=== PATIENT | female | born 1925 | race Caucasian/White ===

== ENCOUNTER 2016-04-29 19:37 | Inpatient (IN) | payer MEDICARE ==
[~2016-04-29] VITALS: Ht 175.3 cm; Wt 48.6 kg
[~2016-04-29 19:37] MED LIST: ASPIRIN325 MG PO; ATIVAN0.5 MG PO; BETAPACE 80 MG80 MG PO; HYDROCODONE-APA1 TAB PO; LUNESTA3 MG PO; MIRALAX17 GM PO; NORVASC2.5 MG PO
[2016-04-29 20:34] LABS: BASOPHILS 0 % (0.0-2.0); EOSINOPHILS 0.6 % (0-7); HEMATOCRIT 29.8 % (36.0-48.0); HEMOGLOBIN 9.4 g/dL (12-16); IMMATURE GRANULOCYTES 0.2 % (0-5); LYMPHOCYTES 5.3 % (15-50); MCH 27.5 pg (26.0-34.0); MCHC 31.5 g/dL (31.0-37.0); MCV 87.1 fL (80.0-100.0); MEAN PLATELET VOLUME 8.8 fL (7.4-10.4); MONOCYTES 5.1 % (2-11); NEUTROPHILS 88.8 % (40-80); RBC 3.42 10x6/uL (4.00-5.40); RDW 16.8 % (11.5-14.5); WBC 9.8 10x3/uL (4.8-10.8)
[2016-04-29 20:35] LABS: PLATELET COUNT 252 10x3/uL (130-400)
[2016-04-29 20:57] LABS: ALBUMIN 1.9 g/dL (3.4-5.0); ANION GAP 10.5 mmol/L (8-16); BILIRUBIN - TOTAL 1.2 mg/dL (0.2-1.3); CALCIUM 7.9 mg/dL (8.5-10.1); CARBON DIOXIDE 29.3 mmol/L (21.0-32.0); POTASSIUM - SERUM 3.8 mmol/L (3.5-5.1); PROTEIN - SERUM 5.5 g/dL (6.4-8.2)
[2016-04-29 22:06] LABS: CREATINE KINASE 35 UL (21-215); PRO BNP 4801 pg/mL (0-450); TROPONIN-I < 0.017 ng/mL (0.000-0.060)
[2016-04-29 22:35] LABS: APPEARANCE CLEAR (CLEAR); BILIRUBIN NEGATIVE (NEGATIVE); COLOR DK YELLOW (YELLOW); GLUCOSE NEGATIVE (NEGATIVE); KETONE NEGATIVE (NEGATIVE); LEUKOCYTE ESTERASE NEGATIVE (NEGATIVE); NITRITE NEGATIVE (NEGATIVE); PROTEIN TRACE mg/dL (NEGATIVE); SPECIFIC GRAVITY 1.015 (1.005-1.020)
[2016-04-29 22:42] LABS: UDS - AMPHET NEGATIVE QUAL (NEGATIVE); UDS - BARB NEGATIVE QUAL (NEGATIVE); UDS - BENZO NEGATIVE QUAL (NEGATIVE); UDS - COCAINE NEGATIVE QUAL (NEGATIVE); UDS - METH NEGATIVE QUAL (NEGATIVE); UDS - OPIATE POSITIVE QUAL (NEGATIVE); UDS - PCP NEGATIVE QUAL (NEGATIVE); UDS - THC NEGATIVE QUAL (NEGATIVE)
--- NOTE | 2016-04-29 23:14 | NUR ---
RECIEVED TO ROOM 2130 FROM ER VIA . PT ALERT AND ORIENTED TO SELF AND PLACE. UP WITH ASSIST TO BSC AND THEN TO BED. IV TO RIGHT FOREARM SL, SITE CLEAN AND DRY. 02 AT 3LITER VIA [place]. HISTORY OBTAINED FROM DAUGHTER. PT DENIES NEEDS, BED LOW, CL IN REACH, BED ALARM IN USE.
[2016-04-29] MEDS ORDERED: LISINOPRIL2.5 MG PO (23:43)
[2016-04-29] MEDS ORDERED: KLONOPIN0.5 MG PO (23:45)
[2016-04-29] MEDS ORDERED: ISOSORBIDE MONO30 M1 PO (23:46)
[2016-04-29] MEDS ORDERED: PACERONE200 MG PO (23:48)
[2016-04-29] MEDS ORDERED: VITAMIN D5000 UNIT PO (23:48)
[2016-04-29] MEDS ORDERED: ZOFRAN ODT4 MG/UDTAB PO (23:51)
[2016-04-30] VITALS (7 sets, daily range): BP systolic 133–157; BP diastolic 57–68; Ht 175.3 cm; Wt 48.6 kg
--- NOTE | 2016-04-30 01:51 | NUR ---
RESTING WITH EYES CLOSED, RESPERATIONS EVEN, NO S/S DISTRESS NOTED.
--- NOTE | 2016-04-30 04:00 | NUR ---
ELECTRONICS SUPERVISOR AT BEDSIDE FOR VS. CONT TO MONITOR.
--- NOTE | 2016-04-30 13:11 | NUR ---
Patient Name: BERTRAM LIANG Admission Status: ER Accout number: [id number] Admission Date: 04-29-2016 : 1925 Admission Diagnosis: Attending: LYNETTE Current LOS: 1 Anticipated DC Date: Planned Disposition: Home with Home Health Primary Insurance: MEDICARE A & B PLANNED EXTERNAL PROVIDER: [facility] Discharge Planning Comments: * Is the patient Alert and Oriented? Yes 0 * How many steps to enter\\exit or inside your home? NONE 0 * PCP DR. YOUNG 0 * Pharmacy [facility] 0 * Preadmission Environment Home with Family 0 * Partial ADLs (Assistance needed) Medication Management 0 * Equipment Bedside Commode Walker 0 * Other Equipment NO MEDICAL EQUIPMENT PROVIDER PREFERENCE 0 * List name and contact numbers for known caregivers / representatives who currently or will assist patient after discharge: DARIANA LIANG, DAUGHTER, 0 * Community resources currently utilized Home Health Other 0 * Please name any agencies selected above. [facility] CALL[facility] 0 * Additional services required to return to the preadmission environment? No 0 * Can the patient safely return to the preadmission environment? Yes 0 * Has this patient been hospitalized within the prior 30 days at any hospital? No 0 CM MET WITH PT AND FAMILY IN ROOM TO DISCUSS DISCHARGE PLANNING AND NEEDS. PT REPORTS LIVING AT HOME PARITALLY DEPENDENT UPON HER ADULT SON AND DAUGHTER. PT REPORTS HAVING ASSISTANCE WITH MEDICATIONS BUT HAS BEEN INDEPENDENT IN OTHER DAILY LIVING TASKS. PT HAS A BEDSIDE COMMODE AND WALKER. PT'S SON IS GOING TO [place]" TODAY TO LOOK FOR A HOSPITAL BED TO PURCHASE FOR PT AND ASKED ABOUT GETTING ONE FROM MEDICARE. CM EXPLAINED THAT A DOCTOR'S ORDER IS REQUIRED AND THAT PT WOULD HAVE TO HAVE CONDITION THAT REQUIRED HEAD OF BED TO BE ELEVATED GREATER THAN 30 DEGREES THAT COULD NOT BE ACHEIVED BY PROPPING UP THE HEADBOARD OR PROPPING PT WITH PILLOWS. PT HAS NO MEDICAL EQUIPMENT PROVIDER AND HAS NURSING, PHYSICAL THERAPY AND AIDE SERVICE WITH [facility]. CM DISCUSSED AVAILABILITY OF HOME HEALTH, REHAB SERVICES AND MEDICAL EQUIPMENT. PT WOULD LIKE A HOSPITAL BED AND RESUME HOME HEALTH WITH [facility], FAMILY REPORTS THEY WILL PICK PT UP FOR DISCHARGE HOME. CM CALLED ERNESTO AT [facility] [place] WHO ADVISED COPAY OF 20% WITH NO COINSURANCE WOULD BE APPROXIMATELY $30 MONTHLY; CM CALLED [facility] WHO ADVISED THAT 20% COPAY WITH NO COINSURANCE WOULD BE APPROXIMATELY $20-$30 MONTHLY. CM SPOKE TO BOYD HERNANDEZ WHO REPORTS WORKUP STILL IN PROGRESS, PT MAY REQUIRE REHAB SERVICES PRIOR TO GOING HOME. CM ADVISED PT AND FAMILY THAT CM WILL WAIT MEDICAL DETERMINATION AND EVALUATION FOR REHAB SERVICES MEDICAL EQUIPMENT NEEDS WOULD BE EVALUATED PRIOR TO DISCHARGE HOME. CM TO FOLLOW AND ASSIST NEEDED. Vice President Of Business Development: Sigifredo Arita
[2016-04-30 13:48] LABS: CKMB 0.9 U/L (0.0-3.6); CREATINE KINASE 20 UL (21-215); TROPONIN-I < 0.017 ng/mL (0.000-0.060)
[2016-04-30 13:53] LABS: % SATURATION 15 % (15-55); IRON 13 ug/dl (35-150); TOTAL IRON BIND CAPACITY 84 ug/dl (260-445); UNSAT IRON BIND CAPACITY 71 ug/dl (150-375)
--- NOTE | 2016-04-30 13:54 | NUR ---
ALERT AND ORIENTED X4. ASSIST TO BEDSIDE COMMODE AND BACK TO BED. URINATES 400mL. CLEAR YELLOW COLOR. DENIES SOB OR PAIN. EKG COMPLETE ON CHART. BED ALARM ON. SINUS RHYTHM 64bpM WITH PACs ON TELEMETRY. BED LOCKED AND LOW. CALL LIGHT IN REACH. TWO SIDERAILS UP. REFUSE SCDs.
[2016-04-30 19:22] LABS: CKMB 0.6 U/L (0.0-3.6); CREATINE KINASE 18 UL (21-215); TROPONIN-I 0.016 ng/mL (0.000-0.060)
--- NOTE | 2016-04-30 19:35 | NUR ---
RECEIVED REPORT, 04-11L, [id number] @50, [id number], BED IS LOW, SRX2, BED ALARM ON, DENIES ANY NEEDS, CALL LIGHT IN REACH, WILL CONTINUE TO MONITOR
[2016-05-01 01:18] LABS: CKMB 0.8 U/L (0.0-3.6); CREATINE KINASE 21 UL (21-215)
[2016-05-01 01:32] LABS: TROPONIN-I < 0.017 ng/mL (0.000-0.060)
--- NOTE | 2016-05-01 03:32 | NUR ---
ASSESSMENT COMPLETE, PT CONFUSED, ASKING WHY SHE CAN'T GO BACK TO ROOM SHE WAS IN EARLIER, BED ALARM IS ON, CALL LIGHT IN REACH, WILL CONTINUE TO MONITOR
[2016-05-01 03:36] VITALS: BP 127/61
[2016-05-01 06:22] VITALS: BP 108/62
[2016-05-01 06:55] LABS: BASOPHILS 0.1 % (0.0-2.0); EOSINOPHILS 2.2 % (0-7); HEMATOCRIT 27.4 % (36.0-48.0); HEMOGLOBIN 8.7 g/dL (12-16); IMMATURE GRANULOCYTES 0.3 % (0-5); LYMPHOCYTES 9.3 % (15-50); MCH 27.2 pg (26.0-34.0); MCHC 31.8 g/dL (31.0-37.0); MCV 85.6 fL (80.0-100.0); MEAN PLATELET VOLUME 9.1 fL (7.4-10.4); MONOCYTES 7.4 % (2-11); NEUTROPHILS 80.7 % (40-80); PLATELET COUNT 264 10x3/uL (130-400); RDW 16.6 % (11.5-14.5)
[2016-05-01 06:57] LABS: WBC 6.9 10x3/uL (4.8-10.8)
[2016-05-01 07:07] LABS: ALBUMIN 1.7 g/dL (3.4-5.0); BILIRUBIN - TOTAL 0.6 mg/dL (0.2-1.3); CALCIUM 7.6 mg/dL (8.5-10.1); CARBON DIOXIDE 31.7 mmol/L (21.0-32.0); PROTEIN - SERUM 5.5 g/dL (6.4-8.2)
[2016-05-01 07:08] LABS: ANION GAP 7.3 mmol/L (8-16); CREATININE - SERUM 1.6 mg/dL (0.6-1.3)
--- NOTE | 2016-05-01 07:31 | NUR ---
PT SITTING UP IN BED. PT DOES NOT HAVE A PIV. I TRIED TO STICK PT X2. PT VEINS ARE SO LARGE THEY BLOW SOON PIV INSERTED. WILL CALL VASCULAR NURSE WHEN SHE ARRIVES.
[2016-05-01 08:22] LABS: MAGNESIUM - SERUM 1.4 mg/dL (1.8-2.4); PHOSPHOROUS 3.4 mg/dL (2.5-4.9)
[2016-05-01 08:30] LABS: POTASSIUM - SERUM 2.9 mmol/L (3.5-5.1)
--- NOTE | 2016-05-01 08:31 | NUR ---
IV access-20 gauge inserted in right arm. Leticia Hooker RN
--- NOTE | 2016-05-01 08:56 | NUR ---
KEYLA VASCULAR NURSE WAS ABLE TO GET A 20G PIV TO R FA X1 STICK. CLINIMIX IS RUNNING NO PROBLEMS.
[2016-05-01 09:05] VITALS: BP 136/71
[2016-05-01 09:17] LABS: FOLATE (FOLIC ACID) - SERUM 9.7 ng/mL (>3.0)
[2016-05-01 12:28] VITALS: BP 133/60
--- NOTE | 2016-05-01 13:32 | NUR ---
LYING IN BED IN NO ACUTE DISTRESS. VISITING WITH FAMILY. CALL LIGHT WITHIN REACH. DENIES NEEDS
[2016-05-01 16:28] VITALS: BP 126/61
--- NOTE | 2016-05-01 19:00 | NUR ---
RECEIVED REPORT AND ASSUMED PT CARE FROM DAY SHIFT NURSE @ THIS TIME.
[2016-05-01 19:53] VITALS: BP 121/57
--- NOTE | 2016-05-01 23:32 | NUR ---
POTASSIUM RESULTS - 3.9. NO FURTHER INTERVENTION REQUIRED.
[2016-05-02 00:24] VITALS: BP 120/57
[2016-05-02 04:23] VITALS: BP 125/58
[2016-05-02 05:41] LABS: BASOPHILS 0 % (0.0-2.0); HEMATOCRIT 28.4 % (36.0-48.0); IMMATURE GRANULOCYTES 0.3 % (0-5); LYMPHOCYTES 10.8 % (15-50); MCH 27.1 pg (26.0-34.0); MCHC 31.7 g/dL (31.0-37.0); MCV 85.5 fL (80.0-100.0); MEAN PLATELET VOLUME 9.3 fL (7.4-10.4); MONOCYTES 6.9 % (2-11); PLATELET COUNT 275 10x3/uL (130-400); RBC 3.32 10x6/uL (4.00-5.40); RDW 16.6 % (11.5-14.5); WBC 6.6 10x3/uL (4.8-10.8)
[2016-05-02 05:54] LABS: ALBUMIN 1.8 g/dL (3.4-5.0); ANION GAP 7.4 mmol/L (8-16); BILIRUBIN - TOTAL 0.46 mg/dL (0.2-1.3); CALCIUM 7.7 mg/dL (8.5-10.1); CARBON DIOXIDE 34.1 mmol/L (21.0-32.0); CREATININE - SERUM 1.5 mg/dL (0.6-1.3); MAGNESIUM - SERUM 1.6 mg/dL (1.8-2.4); PHOSPHOROUS 3.4 mg/dL (2.5-4.9); POTASSIUM - SERUM 3.5 mmol/L (3.5-5.1); PROTEIN - SERUM 5.6 g/dL (6.4-8.2)
--- NOTE | 2016-05-02 08:47 | EC ---
PATIENT:BERTRAM LIANG DATE OF SERVICE: 04/29/16 SEX: F MEDICAL RECORD: [id number] DATE OF : [birth year] LOCATION:D.M2 D.213 AGE OF PATIENT: 89 ADMISSION DATE: 04/29/16 REFERRING PHYSICIAN: INTERPRETING PHYSICIAN: RYNE CEVALLOS MD ECHOCARDIOGRAM REPORT ECHO CHARGES 4 ECHO COMPLETE CLINICAL DIAGNOSIS: CHF/ CHEST PAIN ECHOCARDIOGRAPHIC MEASUREMENTS (adult normal given) AC root (d.<3.7cm) 3.2 LV Septum d (<1.2 cm> 1.7 Valve Excursion 1.4 LV Septum (systole) 1.8 Left Atria (s.<4.0cm> 4.5 LVPW d(<1.2cm) 1.6 RV (d.<2.3cm) 3.9 LVPW (sytole) 2.0 LV diastole(<5.6CM) 5.4 MV E-F(>70mm/sec) LV systole 4.3 LVOT Diameter 1.5 MV exc.(>10mm) 1.4 Est.ejection fraction (50-75%) Pericardial Effusion N DOPPLER: LVIT A 70.0 E 81.0 LA RVSP 36 LVOT 98 AOP1/2T 580 Asc. Ao 153 RVOT 81 RA PA 106 AV Gradient Peak 9.41 AV Mean 4.50 AV Area 1.5 MV Gradient Peak 7.36 MV Mean 2.7 MV Area COMMENTS: Plant Physiology Teacher: Renita DEAN Cutting Department Supervisor:Renita Caruso TAPE# PACS DATE OF SERVICE: 05/01/2016 Echocardiogram FINDINGS: 1. Left ventricular chamber size is within normal limits. Left ventricular systolic function is mildly depressed. Overall ejection fraction in the 35-40% range. 2. Left atrium is enlarged at 4.5 cm. Right atrium and right ventricular chamber sizes are as well mildly dilated. ECHOCARDIOGRAM REPORT [id number] BERTRAM LIANG 3. Valvular structures have normal structure and motion. 4. Doppler interrogation reveals mild to moderate aortic insufficiency, mild mitral regurgitation, mild tricuspid regurgitation, no other valvular insufficiency or stenosis. Pulmonary systolic pressure is normal estimated 36 mmHg. 5. No evidence of pericardial effusion or left ventricular thrombus. TRANSINT:[id number] Voice Confirmation ID: [id number] DOCUMENT ID: [id number] RYNE CEVALLOS MD at 0847 CC: [id number] DICTATION DATE: 05/01/16 1249 PATIENT CARE TECHNICIAN: 05/01/16 1410 ADM IN [facility] [address] [id number]
[2016-05-02 08:49] VITALS: BP 157/80
--- NOTE | 2016-05-02 09:28 | NUR ---
MAG REPLACEMENT GIVEN PER ELECTROLYTE PROTOCOL. PTS MAG IS 1.6 WILL RECIEVE ANOTHER DOSE IN 4 HOURS.
--- NOTE | 2016-05-02 09:42 | NUR ---
ADMINISTERED AM MEDICATIONS. PT IS PLEASANTLY CONFUSED HAVING TROUBLE EXPRESSING WHAT SHE MEANS AND SIMPLE WORDS IE: WATER CUP, HOSPITAL. PT STATES SHE DOESNT REMEMBER YESTERDAY OR HER FAMILY BEING HERE HOWEVER THEY WERE SEEN ALL DAY YESTERDAY. PT REORIENTS WELL BUT STATES SHE DOESNT REMEMBER STILL. DISCONNECTED PT FROM IV TUBING TO AMBULATE WITH THERAPY. CHANGED DRSG TO R.FA PIV R/T IT BEING SOILED WITH BLOOD. NEW TEGADERM CDI, SWAB CAPS IN USE, IV HAS GOOD BLOOD RETURN. WILL CONNECT TO ORDERED FLUID AFTER AMBULATION. NO CURRENT NEEDS. WILL CPOC.
--- NOTE | 2016-05-02 12:17 | NUR ---
PT SITTING UP IN BED EATING LUNCH. RR NONLABORED WITH NC @2L IN PLACE. PT DENIES ANY CURRENT PAIN OR NEEDS. CL IN REACH. WILL CPOC.
[2016-05-02 12:43] VITALS: BP 121/66
--- NOTE | 2016-05-02 17:13 | NUR ---
TRIED TO SCREEN PATIENT FOR MRI/ PATIENT TOO CONFUSED TO COMPLETE SCREENING FORM FOR SELF. LET NURSE KNOW THAT SCREENING SHEET ON CHART AND ONCE COMPLETED TO LET XRAY KNOW SO MRI CAN BE PERFORMED.
[2016-05-02 17:19] VITALS: BP 141/67
--- NOTE | 2016-05-02 17:27 | NUR ---
PT TOO CONFUSED TO FILL OUT MRI QUESTIONAIRE, LEFT MESSAGE WITH DAUGHTER FOR CONSENT. AWAITING CALL BACK.
--- NOTE | 2016-05-02 19:49 | NUR ---
ASSESSMNET COMPLETE, PT ALERT, SPEECH SLURRED. 02 AT 3LITER VIA [place]. RESPERATIONS SHALLOW. PTS SON AT BED SIDE, MRI QUESTIONAIRE GIVEN TO PTS SON TO FILL OUT. PT DENIES PAIN OR NEEDS, BED LOW, CL IN REACH.
[2016-05-02 21:08] VITALS: BP 131/76
--- NOTE | 2016-05-03 00:02 | NUR ---
NO CHANGES NOTED IN ASSESSMENT. NO NEEDS VOICED. CALL LIGHT WITHIN REACH. WILL CONT TO MONITOR.
[2016-05-03 00:07] VITALS: BP 136/72
--- NOTE | 2016-05-03 00:53 | NUR ---
RESTING WITH EYES CLOSED, RESPERATIONS EVEN, NO S/S DISTRESS NOTED.
--- NOTE | 2016-05-03 04:10 | NUR ---
UP WITH ASSIST TO BSC. AFTER CARE MANAGEMENT SPECIALIST ASSISTED PT BACK TO BED, ATTEMPTED TO RESITE IV. PT VERY UP SET, STATING "NO I DONT HAVE TO, WHY ARE YOU DING THIS TO ME" EXPLAINED TO PT THAT SHE NEEDED AN IV TO GET FLUIDS AND HAVE A TEST DONE TODAY, PT INSISTANT THAT I LEAVE HER ALONE AND LET HER REST.
[2016-05-03 04:15] VITALS: BP 151/75
[2016-05-03 06:25] LABS: BASOPHILS 0.2 % (0.0-2.0); EOSINOPHILS 2.4 % (0-7); HEMATOCRIT 28.7 % (36.0-48.0); HEMOGLOBIN 8.9 g/dL (12-16); IMMATURE GRANULOCYTES 0.3 % (0-5); LYMPHOCYTES 11.4 % (15-50); MCH 26.7 pg (26.0-34.0); MCV 86.2 fL (80.0-100.0); MEAN PLATELET VOLUME 9.3 fL (7.4-10.4); MONOCYTES 7.3 % (2-11); NEUTROPHILS 78.4 % (40-80); PLATELET COUNT 251 10x3/uL (130-400); RBC 3.33 10x6/uL (4.00-5.40); RDW 16.7 % (11.5-14.5); WBC 5.7 10x3/uL (4.8-10.8)
[2016-05-03 06:47] LABS: ALBUMIN 1.8 g/dL (3.4-5.0); ANION GAP 7.8 mmol/L (8-16); BILIRUBIN - TOTAL 0.53 mg/dL (0.2-1.3); CALCIUM 7.6 mg/dL (8.5-10.1); CARBON DIOXIDE 34.5 mmol/L (21.0-32.0); CREATININE - SERUM 1.3 mg/dL (0.6-1.3); POTASSIUM - SERUM 3.3 mmol/L (3.5-5.1); PROTEIN - SERUM 5.4 g/dL (6.4-8.2)
--- NOTE | 2016-05-03 07:37 | NUR ---
ON HEART MONITOR SHOWING SB, HR 58. ON 3L PER NC. BED ALARM IS SET. ON EP, WILL MONITOR LAB VALUES. K+ IS 3.3, WILL REPLACE. RIGHT HAND SEEN WITH CLINIMIX INFUSING AT 50 CC/HR. WILL CONTINUE TO MONITOR.
[2016-05-03 07:41] LABS: MAGNESIUM - SERUM 1.7 mg/dL (1.8-2.4); PHOSPHOROUS 3.7 mg/dL (2.5-4.9)
[2016-05-03 08:06] VITALS: BP 142/64
--- NOTE | 2016-05-03 09:05 | NUR ---
TO MRI VIA STRETCHER.
--- NOTE | 2016-05-03 11:25 | NUR ---
ASSISTED TO BSC, PATIENT IS VERY SHAKY AND UNSTEADY ON HER FEET. VOIDS EASILY ONCE SHE IS TO THE BSC. CONFUSED, ANXIOUS. ASSISTED BACK TO BED PAST VOID, BED ALARM IS ON.
[2016-05-03 11:55] VITALS: BP 133/63
[2016-05-03 15:03] VITALS: BP 129/63
--- NOTE | 2016-05-03 15:07 | NUR ---
PATIENT REFUSED TO LET LAB RE-DRAW HER K+ LEVEL.
--- NOTE | 2016-05-03 19:03 | NUR ---
UP TO BATHROOM WITH ASSIST, AWAKE AND ALERT, SKIN WARM AND DRY, RESP UNLABORED, IV PATENT TO RIGHT HAND, O2@3LNC, BED ALARM IN USE, NO DISTRESS NOTED
[2016-05-03 21:26] VITALS: BP 137/69
--- NOTE | 2016-05-04 00:54 | NUR ---
TALK SHOW HOST AT BEDSIDE FOR VS. NEEDS ADDRESSED, CALL LIGHT IN REACH. WILL CONT TO MONITOR.
[2016-05-04 04:30] VITALS: BP 143/83
[2016-05-04 06:22] LABS: BASOPHILS 0.2 % (0.0-2.0); EOSINOPHILS 2.5 % (0-7); HEMATOCRIT 27.4 % (36.0-48.0); HEMOGLOBIN 8.7 g/dL (12-16); IMMATURE GRANULOCYTES 0.3 % (0-5); LYMPHOCYTES 11.7 % (15-50); MCH 27.4 pg (26.0-34.0); MCHC 31.8 g/dL (31.0-37.0); MCV 86.2 fL (80.0-100.0); MEAN PLATELET VOLUME 9.3 fL (7.4-10.4); MONOCYTES 8.1 % (2-11); NEUTROPHILS 77.2 % (40-80); PLATELET COUNT 265 10x3/uL (130-400); RBC 3.18 10x6/uL (4.00-5.40); RDW 16.5 % (11.5-14.5); WBC 6.4 10x3/uL (4.8-10.8)
[2016-05-04 06:45] LABS: ALBUMIN 1.7 g/dL (3.4-5.0); ANION GAP 7.4 mmol/L (8-16); BILIRUBIN - TOTAL 0.46 mg/dL (0.2-1.3); CALCIUM 7.9 mg/dL (8.5-10.1); CARBON DIOXIDE 33.2 mmol/L (21.0-32.0); CREATININE - SERUM 1.1 mg/dL (0.6-1.3); POTASSIUM - SERUM 3.6 mmol/L (3.5-5.1); PROTEIN - SERUM 5.3 g/dL (6.4-8.2)
--- NOTE | 2016-05-04 06:45 | NUR ---
RESTING QUIETLY IN BED, NO DISTRESS NOTED
[2016-05-04 08:13] VITALS: BP 151/67
--- NOTE | 2016-05-04 11:00 | NUR ---
SITTING UP IN BED. ALERT AND ORIENTED TO PERSON. STATES BEING IN HOSPITAL. EXPERIENCING [place]. SINUS RUKHSANA 55bpm ON TELEMETRY. DENIES PAIN OR SOB. OBSESSING ABOUT NUMBERS. FREQUENTLY ASKS, "WHAT DO I NEED TO DO WITH THESE NUMBERS?" EXPLAIN THE NUMBERS ARE TO [employer] CONSULTANT AND AGRONOMY SUPERVISOR. CONTINUE PLAN OF CARE. BED LOCKED AND LOW. BED ALARM ON. TWO SIDERAILS UP.
[2016-05-04 12:43] VITALS: BP 129/64
--- NOTE | 2016-05-04 13:05 | NUR ---
REHAB PRESCREENING Rehab referral received today via phone call from Clarissa on Med Surg. Chart was reviewed and noted that Ms. Hilario does have a rehab diagnosis. PT noted that she walked over 100 feet today with a rolling walker. Rehab to interview patient tomorrow to assess if patient meets admission criteria. If criteria is met, we will plan to bring this patient to rehab Thursday morning if her physician feels she is ready for discharge. Thank you for this referral! Opal Liang, CLIENT CARE SPECIALIST [facility]
[2016-05-04 16:00] VITALS: BP 119/59
--- NOTE | 2016-05-04 19:48 | NUR ---
RESUMED CARE OF PT, LYING IN BED RESPIRAITONS EVEN AND UNLABORED ON 2LPM VIA NC. 58 SB ON TELEMETRY. FAMILY AT BEDSIDE. NO IV, REFUSING A NEW AT THIS TIME. CALL LIGHT IN REACH. WILL CONTINUE TO MONITOR. SEE NURSE ASSESSMENT.
[2016-05-04 21:24] VITALS: BP 128/53
--- NOTE | 2016-05-05 01:33 | NUR ---
SENIOR SQL SERVER DBA AT BEDSIDE TO OBTAIN VITALS, CALL LIGHT IN REACH. WILL CONTINUE WITH PLAN OF CARE.
[2016-05-05 04:30] VITALS: BP 116/68
[2016-05-05 05:07] LABS: BASOPHILS 0.2 % (0.0-2.0); EOSINOPHILS 1.9 % (0-7); HEMATOCRIT 27.7 % (36.0-48.0); HEMOGLOBIN 8.9 g/dL (12-16); IMMATURE GRANULOCYTES 0.2 % (0-5); LYMPHOCYTES 11.1 % (15-50); MCH 27.5 pg (26.0-34.0); MCHC 32.1 g/dL (31.0-37.0); MCV 85.5 fL (80.0-100.0); MEAN PLATELET VOLUME 9.1 fL (7.4-10.4); MONOCYTES 8.7 % (2-11); NEUTROPHILS 77.9 % (40-80); PLATELET COUNT 258 10x3/uL (130-400); RBC 3.24 10x6/uL (4.00-5.40); RDW 16.6 % (11.5-14.5); WBC 5.8 10x3/uL (4.8-10.8)
[2016-05-05 05:17] LABS: ALBUMIN 1.8 g/dL (3.4-5.0); ANION GAP 7.7 mmol/L (8-16); BILIRUBIN - TOTAL 0.58 mg/dL (0.2-1.3); CALCIUM 7.6 mg/dL (8.5-10.1); CARBON DIOXIDE 32.8 mmol/L (21.0-32.0); POTASSIUM - SERUM 3.5 mmol/L (3.5-5.1); PROTEIN - SERUM 5.3 g/dL (6.4-8.2)
--- NOTE | 2016-05-05 06:44 | NUR ---
NO CHANGES FROM PREVIOUS ASSESSMENT, CALL LIGHT IN REACH. BED ALARM ON
[2016-05-05 08:32] VITALS: BP 149/66
--- NOTE | 2016-05-05 11:00 | NUR ---
ALERT AND ORIENTED TO PERSON. STUDENT NURSE IN ROOM. REQUESTING A SHOWER. STUDENT NURSE ASSIST WITH SHOWER AND LINEN CHANGE. WAITING FOR REHAB PRESCREEN. AMBULATES IN MARTINES 50FT WITH PHYSICAL THERAPY. CONTINUE PLAN OF CARE AND SAFETY PRECAUTIONS.
[2016-05-05 12:30] VITALS: BP 116/54
--- NOTE | 2016-05-05 12:50 | NUR ---
Patient Name: BERTRAM LIANG Encounter No: [id number] : 1925 Primary Insurance: MEDICARE A & B Anticipated DC Date: 05-05-2016 Planned Disposition: Inpatient Rehab External Planned Provider: [facility] INPATIENT REHAB DCP follow-up note: CM RECEIVED ORDER, MET WITH PT IN ROOM TO DISCUSS INPATIENT REHAB. PT REPORTS WILLINGNESS FOR REHAB IF HER FAMILY FEELS IT IS NECESSARY. PT REPORTS HER SON LEFT AND WILL BE BACK THIS AFTERNOON, DIRECTED CM TO SPEAK TO HER SON. CM CALLED PT'S HOME PHONE, AND RECEIVED NO ANSWER. CM CALLED LISTED EMERGENCY CONTACT / DAUGHTER, DARIANA LIANG, , RECEIVED NO ANSWER AND NO VOICE MAIL WAS SET UP. CM SPOKE TO MEGAN OF INPATIENT REHAB WHO REPORTS THAT INPATIENT REHAB WILL ACCEPT PT WHEN READY FOR DISCHARGE. CM NOTIFIED BOYD HERNANDEZ. CM TO SPEAK TO PT'S SON WHEN HE ARRIVES BACK AT HOSPITAL. [facility] INPATIENT REHAB TO CONTACT MED 2 NURSE WITH ROOM NUMBER WHEN READY TO ACCEPT PT AND NURSE REPORT. Sigifredo Arita, CASE MANAGEMENT
[2016-05-05] MEDS ORDERED: ELIQUIS2.5 MG PO (13:22)
[2016-05-05] MEDS ORDERED: BETAPACE 80 MG80 MG PO (13:22)
[2016-05-05] MEDS ORDERED: LASIX40 MG PO (13:28)
--- NOTE | 2016-05-05 15:41 | NUR ---
Patient Name: BERTRAM LIANG Encounter No: [id number] : 1925 Primary Insurance: MEDICARE A & B Anticipated DC Date: 05-05-2016 Planned Disposition: Inpatient Rehab External Planned Provider: [facility] INPATIENT REHAB DCP follow-up note: CM CALLED AND SPOKE TO GERONIMO LIANG, , WHO REPORTED THAT THE FAMILY WERE HOPING THAT PT WOULD GET [facility]. PT'S DAUGHTER DARIANA AND GRANDDAUGHTER VERNON ([phone]) WILL BE AVAILABLE TO ASSIST PT AFTER DISCHARGE FROM REHAB. GERONIMO WILL BE TO THE HOSPITAL LATER THIS AFTERNOON TO VISIT WITH PT. CM EXPLAINED IMPORTANT MESSAGE TO PT AND GERONIMO (VIA PHONE), LEFT COPY IN ROOM FOR PT AND FAMILY. PT SPOKE TO GERONIMO VIA PHONE AND IS IN AGREEMENT WITH INPATIENT REHAB AT [facility]. [facility] INPATIENT REHAB TO CONTACT MED 2 NURSE WITH ROOM NUMBER WHEN READY TO ACCEPT PT AND NURSE REPORT. Sigifredo Arita, CASE MANAGEMENT
--- NOTE | 2016-05-05 18:34 | NUR ---
RESTING IN BED. FAMILY AT BEDSIDE. ORIENTATION IMPROVING. NO IV. REPORT CALLED TO MARIELY OSMAN IN INPATIENT REHAB. PLAN TO TRANSPORT TO REHAB VIA WHEELCHAIR.
[2016-05-05 20:36] VITALS: BP 124/55
== END 2016-05-05 21:15 | DRG 64 ==
LOC: D.ER 19:37 → D.M2 21:42
PROVIDERS: Emergency Medicine; ADMIT Family Medicine
DX: I63.9 Cerebral infarction, unspecified (principal); I50.23 Acute on chronic systolic (congestive) heart failure; I11.0 Hypertensive heart disease with heart failure; R47.01 Aphasia; I48.0 Paroxysmal atrial fibrillation; M19.90 Unspecified osteoarthritis, unspecified site; D63.8 Anemia in other chronic diseases classified elsewhere; T46.2X5A Adverse effect of other antidysrhythmic drugs, initial encounter; R13.10 Dysphagia, unspecified; R40.2143 Coma scale, eyes open, spontaneous, at hospital admission; R40.2363 Coma scale, best motor response, obeys commands, at hospital admission; R40.2243 Coma scale, best verbal response, confused conversation, at hospital admission; Z85.3 Personal history of malignant neoplasm of breast; Z87.891 Personal history of nicotine dependence

== ENCOUNTER 2016-05-05 17:34 | Inpatient (IN) | payer MEDICARE ==
[~2016-05-05] VITALS: Ht 175.3 cm; Wt 49.0 kg
[~2016-05-05 17:34] MED LIST changes: +ELIQUIS2.5 MG PO; +ISOSORBIDE MONO30 M1 PO; +KLONOPIN0.5 MG PO; +LASIX40 MG PO; +LISINOPRIL2.5 MG PO; +PACERONE200 MG PO; +VITAMIN D5000 UNIT PO; +ZOFRAN ODT4 MG/UDTAB PO
[2016-05-05 19:00] VITALS: BP 124/53
--- NOTE | 2016-05-05 21:00 | NUR ---
RECEIVED PT IN WHEELCHAIR FROM NURSING STAFF. PT IS A MAX. ASSIST TRANSFER. FREDDY PAD PLACED IN PT'S BED AND WHEELCHAIR. PT IS ALERT AND ORIENTED TO PERSON BUT NOT ORIENTED TO TIME, PLACE, AND SITUATION. PT HAD SOME ANXIETY ABOUT BEING IN A NEW ROOM, BUT PT'S ANXIETY WENT AWAY AFTER TALKING WITH HER. LEFT PT WITH SIDE RAILS X3, BED IN LOWEST POSITION, AND CALL LIGHT WITHIN REACH.
[2016-05-05 23:05] VITALS: BP 124/53; BMI 15.9
--- NOTE | 2016-05-05 23:45 | NUR ---
ADMISSION ASSESSMENT COMPLETE. DENIES NEEDS.
--- NOTE | 2016-05-06 01:23 | NUR ---
PT IN BED WITH HOB AT 25 DEGREES, EYES CLOSED, CHEST RISING AND FALLING, BED IN LOWEST POSITION AND CALL LIGTH WITHIN REACH.
--- NOTE | 2016-05-06 06:36 | NUR ---
PT ASSISTED TO BATHROOM BY RAFFY PINTO.
--- NOTE | 2016-05-06 06:43 | NUR ---
PT IN BED WITH HOB UP FOR COMFORT, EYES OPEN, PT HAS NO COMPLAINTS AT THIS TIME, BED IN LOWEST POSITION AND CALL LIGHT WITHIN REACH.
[2016-05-06 06:55] LABS: BASOPHILS 0.2 % (0.0-2.0); EOSINOPHILS 1.8 % (0-7); HEMATOCRIT 26.3 % (36.0-48.0); HEMOGLOBIN 8.8 g/dL (12-16); IMMATURE GRANULOCYTES 0.2 % (0-5); LYMPHOCYTES 12.3 % (15-50); MCH 28.9 pg (26.0-34.0); MCHC 33.5 g/dL (31.0-37.0); MCV 86.2 fL (80.0-100.0); MEAN PLATELET VOLUME 9.2 fL (7.4-10.4); NEUTROPHILS 78.5 % (40-80); PLATELET COUNT 272 10x3/uL (130-400); RBC 3.05 10x6/uL (4.00-5.40); RDW 16.9 % (11.5-14.5); WBC 6.3 10x3/uL (4.8-10.8)
[2016-05-06 07:13] LABS: CALCIUM 7.7 mg/dL (8.5-10.1); CARBON DIOXIDE 32.4 mmol/L (21.0-32.0); CREATININE - SERUM 1.1 mg/dL (0.6-1.3); POTASSIUM - SERUM 3.4 mmol/L (3.5-5.1)
--- NOTE | 2016-05-06 07:30 | NUR ---
RESTING QUIETLY IN BED CALL LIGHT IN REACH
[2016-05-06 08:19] VITALS: BP 111/51
--- NOTE | 2016-05-06 13:04 | NUR ---
SITTING IN W/C IN ROOM TALKING TO ROOM MATE
[2016-05-06 14:26] VITALS: Ht 175.3 cm; Wt 49.0 kg
--- NOTE | 2016-05-06 18:16 | NUR ---
RESTING QUIETLY IN BED. FED SELF SUPPER. REMAINS CONFUSED BUT PLEASANT
[2016-05-06 19:35] VITALS: BP 122/49
--- NOTE | 2016-05-06 19:43 | NUR ---
PT HAS DIFFICULTY WITH NAMING OBJECTS, PLEASANT, CONVERSIVE, RESPIRATIONS REGULAR AND UNLABORED. NO S/S OF ACUTE DISTRESS, SMILES EASILY.
--- NOTE | 2016-05-06 23:45 | NUR ---
PT IN BED WITH HOB UP FOR COMFORT, WATCHING TV, PT HAS NO COMPLAINTS AT THIS TIME, BED IN LOWEST POSITION, BED ALARM ON, AND CALL LIGHT WIHTIN REACH.
--- NOTE | 2016-05-07 04:46 | NUR ---
PT IN BED WITH HOB UP FOR COMFORT, EYES CLOSED, CHEST RISING AND FALLING, BED IN LOWEST POSITION, BED ALARM ON AND CALL LIGHT WITHIN REACH.
[2016-05-07 07:09] LABS: BASOPHILS 0.4 % (0.0-2.0); EOSINOPHILS 2.6 % (0-7); HEMATOCRIT 26.3 % (36.0-48.0); HEMOGLOBIN 8.3 g/dL (12-16); IMMATURE GRANULOCYTES 0.4 % (0-5); LYMPHOCYTES 16.8 % (15-50); MCHC 31.6 g/dL (31.0-37.0); MCV 85.7 fL (80.0-100.0); MONOCYTES 7.9 % (2-11); NEUTROPHILS 71.9 % (40-80); PLATELET COUNT 284 10x3/uL (130-400); RBC 3.07 10x6/uL (4.00-5.40); RDW 16.8 % (11.5-14.5); WBC 5.4 10x3/uL (4.8-10.8)
[2016-05-07 07:43] LABS: ANION GAP 8.5 mmol/L (8-16); CALCIUM 7.4 mg/dL (8.5-10.1); POTASSIUM - SERUM 3.5 mmol/L (3.5-5.1)
[2016-05-07 07:44] LABS: CREATININE - SERUM 1.4 mg/dL (0.6-1.3)
--- NOTE | 2016-05-07 08:00 | NUR ---
SHIFT ASSMT COMPLETED.
[2016-05-07 08:19] VITALS: BP 142/60
--- NOTE | 2016-05-07 12:00 | NUR ---
EATING LUNCH.VISITING WITH DAUGHTER.
--- NOTE | 2016-05-07 15:46 | NUR ---
CARE TEAM MEETING: PATIENT NEW TO UNIT AND WILL BE RA AT NEXT MEETING. WILL CONTINUE TO FOLLOW WITH PATIENT
--- NOTE | 2016-05-07 15:47 | NUR ---
CARE TEAM MEETING: PATIENT NEW TO UNIT AND WILL BE RA AT NEXT MEETING. PCP IS DR. YOUNG, SHE HAS USED [facility] IN THE PAST. PATIENT HAS BS AND WALKER. WILL CONTINUE TO FOLLOW WITH PATIENT UNTIL DISCHARGED
--- NOTE | 2016-05-07 16:00 | NUR ---
RESTING QUIETLY.VILMA THERAPY.
[2016-05-07 19:00] VITALS: BP 147/61
--- NOTE | 2016-05-08 00:02 | NUR ---
PT IN BED WITH EYES OPEN WATCHING TV. NO CONCERNS OR COMPLAINTS MADE KNOWN AT THIS TIME. CALL LIGHT IN REACH.
--- NOTE | 2016-05-08 04:05 | NUR ---
PT IN BED WITH EYES CLOSED AND CHEST RISING. NO SIGN/SYMPTOMS OF DISTRESS. CALL LIGHT IN REACH.
--- NOTE | 2016-05-08 06:40 | NUR ---
PT IN BED WITH EYES CLOSED AND CHEST RISING. NO CONCERN NOTED AT THIS TIME. CALL LIGHT IN REACH.
--- NOTE | 2016-05-08 08:00 | NUR ---
SHIFT ASSMT COMPLETED.DENIES NEEDS.ASSISTED OOB;SHAKEY;TAKEN TO BATHROOM.VOIDED.RETURNED TO AND MEAL SET-UP PROVIDED.CL IN REACH.ALARM ON.
[2016-05-08 10:20] VITALS: BP 163/71
--- NOTE | 2016-05-08 12:00 | NUR ---
SITTING UP EATING LUNCH.DENIES NEEDS.
--- NOTE | 2016-05-08 16:00 | NUR ---
RESTING QUIETLY.CL IN REACH.
--- NOTE | 2016-05-08 20:24 | NUR ---
PT IN BED WATCHING TV. FRESH ICE WATER REQUESTED AND GIVEN. NO OTHER NEEDS MADE KNOWN AT THIS TIME. CALL LIGHT IN REACH.
[2016-05-08 22:16] VITALS: BP 119/70
[2016-05-08 22:20] VITALS: BP 109/43
--- NOTE | 2016-05-09 01:51 | NUR ---
PT IN BED WITH EYES CLOSED AND CHEST RISING. UP ONCE FOR BATHROOM SINCE MIDNIGHT. NO CONCERNS MADE KNOWN. CALL LIGHT IN REACH.
--- NOTE | 2016-05-09 05:35 | NUR ---
PT IN BED WITH EYES CLOSED AND CHEST RISING. EASILY AROUSED TO VERBAL STIMULI. RECEIVED MEDICATIONS PER MAR WITHOUT DIFFICULTY. NO CONCERNS OR NEEDS MADE KNOWN AT THIS TIME. CALL LIGHT IN REACH.
--- NOTE | 2016-05-09 07:26 | NUR ---
RESTING QUIETLY IN BED CALL LIGHT IN REACH
[2016-05-09 08:57] VITALS: BP 144/72
--- NOTE | 2016-05-09 09:49 | RHP ---
PATIENT: BERTRAM LIANG MEDICAL RECORD: [id number] ACCOUNT: [id number] LOCATION:[facility]1118 : [birth year] ADMISSION DATE: 05/05/16 REHABILITATION HISTORY AND PHYSICAL EXAMINATION POST ADMISSION PHYSICIAN EXAMINATION DATE OF ADMISSION: 05/05/2016 ADMITTING DIAGNOSES: Left middle cerebral artery infarction, oropharyngeal dysphagia and expressive dysphasia. HISTORY OF PRESENT ILNESS: The patient is an 89-year-old female patient admitted to inpatient rehab for a left middle cerebral artery infarction with oropharyngeal dysphagia and expressive aphasia. She actually presented to the Emergency Room with acute mental status changes, lethargy and dysphagia. She does not recall the events prior coming to the hospital. She was confused and believed it was 1976. She continues to have periods of confusion. She was able to follow simple commands. Family reported that on admit the patient has been grieving the loss of her grandchild and also had poor oral intake and choking on her food prior to hospitalization. She was lethargic per family, on the date of admission, she has had complained of right-sided chest pain and shoulder pain. She was admitted to acute inpatient hospital for acute mental status changes and CHF. After admit, she had a CT and MRI of her head and neurology was consulted. She was found to have a left middle cerebral artery infarction. She has also been receiving PT and speech therapy during her acute hospital stay. She has progressed on therapy, but continued to have moderate SPA level with her mobility, ADLs and cognition. She was independent with all mobility, ADLs and cognition prior hospitalizations. Living in her own home. We would like to hopefully get her back to this level and get her back home. Inpatient rehab really seems to be her only option to get back to that level. COMORBIDITIES: Include chronic atrial fibrillation, systolic heart failure, anemia, hypertension, altered mental status, emphysema, poor nutritional intake, osteoarthritis, restrictive airway disease, former smoker. PAST MEDICAL HISTORY: Significant for atrial fibrillation, hypertension, restrictive airway disease, osteoarthritis, has had a goiter in the past. PAST SURGICAL HISTORY: Includes a left breast mastectomy and also repair of a fracture to her right leg/hip. ALLERGIES: CODEINE. CURRENT MEDICATIONS: Include sotalol 40 mg b.i.d., Zofran 4 mg q.6 hours p.r.n., lisinopril 2.5 mg daily, Imdur 30 mg daily, [place] 10/325 one tab b.i.d. p.r.n. pain, Lasix 40 mg b.i.d., vitamin D 5000 units daily, Eliquis 2.5 mg b.i.d., and polyethylene glycol 17 grams in 8 ounces of water daily. HABITS: Does have a history of tobacco use, has not smoked in years. FAMILY HISTORY: Noncontributory. SOCIAL HISTORY: The patient would like to return back home and get back to her prior level of functioning. HISTORY AND PHYSICAL [id number] CHEWNING,BERTRAM REVIEW OF SYSTEMS: GENERAL: She does complain of weakness. HEENT: Denies cold, cough, or congestion. CARDIOVASCULAR: Denies chest pain. PHYSICAL EXAMINATION: VITAL SIGNS: Stable, afebrile. GENERAL: Elderly female in no acute distress, alert upon exam. HEENT: Normocephalic and atraumatic. Mucosa moist. NECK: Supple. No lymphadenopathy. LUNGS: Clear at this time. HEART: Irregular rate and rhythm. ABDOMEN: Benign. EXTREMITIES: No clubbing, cyanosis or edema. NEUROLOGIC: Consistent with an acute infarct. LABORATORY DATA: Her white count 6.3, H&H of 8.8 and 26.3 and platelet count was 272. Her sodium is 137, potassium 3.4, BUN and creatinine of 33 and 1.1 and blood sugar was noted to be 91. ASSESSMENT: This is an 89-year-old female patient admitted to rehab with a working diagnosis of left middle cerebral artery infarction and also problems with oropharyngeal dysphagia. The patient has potential to make improvement. We instituted the following multidisciplinary therapies including to, but not limited to physical, occupational, respiratory, speech, nutritional services, prosthetics and orthotics. Given her complex condition and risk for more complications, rehabilitation services cannot be provided at a low level of care such as a [facility] facility. PLAN: 1. Admit to [facility] rehab for intensive inpatient therapy to include the following disciplines: A. Physical therapy to improve gait, all transfer skills and bed mobility to a modified independent level. B. Occupational therapy to improve activities of daily living to a modified independent level. C. Case management to assist with discharge planning and placement options. D. Nutrition to assist with nutritional needs. E. Rehabilitation nursing to assist in monitoring the patient's underlying medical conditions and to assist with any type of bowel or bladder management. 2. The patient will be placed on current fall precautions. 3. The patient will be discussed during the care team staff meeting this week. 4. We will go ahead and replace her potassium. Monitor H&H closely and transfuse if necessary. 5. We will go ahead and discussed during care team in the a.m. TRANSINT:[id number] Voice Confirmation ID: [id number] DOCUMENT ID: [id number] HISTORY AND PHYSICAL [id number] BERTRAM LIANG SCOTT MD at 0949 CC: [id number] DICTATION DATE: 05/06/16 0837 GRAIN CLEANER AND TRANSFER OPERATOR: 05/06/16 1415 ADM IN [id number] [place] [address]
--- NOTE | 2016-05-09 14:15 | NUR ---
Nutrition Follow Up: Chart reviewed. Pt is eating 54% meal avg on a Regular Mechanical Soft diet. +BM 05/07/16. Meds and labs noted. Pt with fair po intake at this time. Rec continue current diet per DELIVERY ARCHITECT recs. RD following.
--- NOTE | 2016-05-09 17:50 | NUR ---
SITTING UP IN BED EATING SUPPER. STILL CONFUSED BUT PLEASANT. IS FRAIL AND THIN.
[2016-05-09 19:00] VITALS: BP 111/48
--- NOTE | 2016-05-09 19:00 | NUR ---
FURNITURE RESTORER OBTAINED VS AND ENTERED IN THE COMPUTER PER THIS RN
--- NOTE | 2016-05-09 19:30 | NUR ---
ASSESSMENT PER FLOW SHEET, PT ORIENTED TO SELF, PT INST TO USE CALL LIGHT FOR ANY ASSISTANCE, PT VERBALIZES UNDERSTANDING, PT ASKS ABOUT HER MEDICINES, INFORMED PT THAT I WILL ADM THEM IN A LITTLE WHILE, PT VERBALIZES UNDERSTANDING
--- NOTE | 2016-05-09 20:23 | NUR ---
PT LEVERS LACE MACHINE OPERATOR LIGHT, PT UP TO WC WITH ASSISTANCE, PT TO TRANSFERRED SELF WITH ASSISTANCE TO COMMODE, PT VOIDED BY SELF WITH NO DIFFICULTY, PT BACK TO WC, AND BACK TO BED, PT POSITIONED SELF IN BED, ASKS ABOUT MEDICINES AGAIN, INFORMED PT THAT I WILL BRING THEM IN A LITTLE WHILE, PT VERBALIZES UNDERSTANDING, BED IN LOW POSITION, SIDE RAILS X 2, BED ALARM ON, CALL LIGHT IN REACH
--- NOTE | 2016-05-09 21:46 | NUR ---
PT RESTING WITH EYES CLOSED, AROUSES TO SOFT VERBAL STIMULATION, ADM 2100 MEDS PO PER MD ORDERS WITH FRESH H20, PT DENIES FURTHER NEEDS
--- NOTE | 2016-05-09 22:35 | NUR ---
PT RESTING WITH EYES CLOSED, RESP QUIET, NO DISTRESS NOTED, LEFT UNDISTURBED AT THIS TIME
--- NOTE | 2016-05-10 00:07 | NUR ---
PT RESTING WITH EYES CLOSED, RESP QUIET, NO DISTRESS NOTED, LEFT UNDISTURBED AT THIS TIME
--- NOTE | 2016-05-10 02:22 | NUR ---
PT RESTING WITH EYES CLOSED, RESP QUIET, NO DISTRESS NOTED, LEFT UNDISTURBED AT THIS TIME
--- NOTE | 2016-05-10 04:30 | NUR ---
PT RESTING WITH EYES CLOSED, RESP QUIET, NO DISTRESS NOTED, LEFT UNDISTURBED AT THIS TIME
--- NOTE | 2016-05-10 05:15 | NUR ---
PT LEAF CONDITIONER HELPER LIGHT, PT CONFUSED TO PLACE AND TIME, RE-ORIENTED, BUT PT THEN REPEATED SHE WAS AT HOME, PT UP TO BEDSIDE COMMODE, PT VERY SHAKY, PT VOIDED BY SELF WITH NO DIFFICULTY, ADULT UNDERWEAR AND CLEAN SCRUB BOTTOMS PLACED, PINK PAD CHANGED, PT BACK TO BED, INFORMED PT THAT I WILL BRING MEDS IN SHORTLY, PT DENIES FURTHER NEEDS
--- NOTE | 2016-05-10 05:42 | NUR ---
PT RESTING WITH EYES CLOSED, AROUSES TO SOFT VERBAL STIMULATION, ATTEMPTED TO ADM LASIX, PT REPORTS SHE IS FEELING NAUSEATED, INFORMED PT THAT I WILL BE RIGHT BACK WITH AN EMESIS BASIN AND JAZMIN
--- NOTE | 2016-05-10 05:47 | NUR ---
EMESIS BASIN PROVIDED, PT REFUSES LASIX, ADM ZOFRAN PO PER MD ORDERS, SEE EMAR, PT DENIES FURTHER NEEDS
--- NOTE | 2016-05-10 06:37 | NUR ---
SHIFT REPORT TO DAY SHIFT
--- NOTE | 2016-05-10 07:31 | NUR ---
GETTING OUT OF BED WITH NURSE.
[2016-05-10 08:00] VITALS: BP 117/51
--- NOTE | 2016-05-10 08:16 | NUR ---
PATIENT IS CONFUSED. POOR MEMORY. ALERT/ORIENT TO SELF ONLY. BED ALARM ON. CALL LIGHT WITHIN REACH. VOICE NO NEEDS
--- NOTE | 2016-05-10 10:00 | NUR ---
PATIENT HELPED INTO BATHROOM. MOD ASST WITH TRANSFER FROM BED TO WHEELCHAIR. WHEELCHAIR ONTO TOILET. NEEDED HELP WITH PULLING UP AND DOWN BRIEFS. IS CONT OF B/B
--- NOTE | 2016-05-10 12:14 | NUR ---
OCCUPATIONAL THERAPIST IN ROOM. HELPING PATIENT WITH A SHOWER.
--- NOTE | 2016-05-10 12:15 | NUR ---
PATIENT SITTING UP IN WHEELCHAIR FOR LUNCH. FREDDY ALARM ON.
--- NOTE | 2016-05-10 14:05 | NUR ---
PATIENT BACK IN BED AFTER THERAPY. WATCHING T.V. BED ALARM ON. THIS NURSE REMAINED PATIENT TO USE CALL LIGHT
--- NOTE | 2016-05-10 17:00 | NUR ---
PATIENT IN REHAB ROOM. WORKING WITH OCCUPTIONAL THERAPIST. DENIES ANY PAIN/DISC AT THIS TIME
[2016-05-10 19:21] VITALS: BP 103/51
--- NOTE | 2016-05-11 03:00 | NUR ---
PT REQUESTED ASSISTANCE TO BATHROOM, PT HAS ISSUE WITH FEET SLIDING WHILE WEARING NONSLIP SLIPPERS. PT FRIENDLY AND CONVERSIVE.
--- NOTE | 2016-05-11 06:30 | NUR ---
RESTING QUIETLY IN BED. CALL LIGHT IN REACH
--- NOTE | 2016-05-11 06:37 | NUR ---
PT C/O OF BILAT GREAT TOE PAIN, ASSESSMENT TOENAILS ARE CUTTING INTO SKIN, HAMMER TOE, LEFT MESSAGE FOR PHYSICIAN.
[2016-05-11 07:00] VITALS: BP 114/45
--- NOTE | 2016-05-11 14:44 | NUR ---
RESTING QUIETLY IN BED. UP WITH MOD ASST TO BATHROOM. IS CONT OF B/B.
--- NOTE | 2016-05-11 18:15 | NUR ---
RESTING QUIETLY IN BED. ATE SUPPER AND NOW COVERED UP TO NECK WITH EYES CLOSED
--- NOTE | 2016-05-11 19:20 | NUR ---
ASSISTED PT TO BR. PT SCRUB TOP CHANGED. PT BACK IN BED. VS TAKEN. ASSESSMENT COMPLETE. PT DENIES NEEDS AT THIS TIME. BED LOW. CL IN REACH.
[2016-05-11 21:15] VITALS: BP 125/50
--- NOTE | 2016-05-11 21:30 | NUR ---
PT HS MEDS ADNINISTERED. PT DENIES FURTHER NEEDS. WCTM. BED LOW. CL IN REACH.
--- NOTE | 2016-05-11 23:10 | NUR ---
PT ASSISTED TO BR. PT BACK IN BED AND DENIES FURTHER NEEDS. WCTM. BED LOW. CL IN REACH.
--- NOTE | 2016-05-12 01:34 | NUR ---
PT RESTING, EYES CLOSED. BED LOW. CL IN REACH. WCTM.
--- NOTE | 2016-05-12 04:28 | NUR ---
PT RESTING, EYES CLOESD. BED LOW. CLIN REACH.
--- NOTE | 2016-05-12 06:15 | NUR ---
PT AM MEDS ADMINISTERED. PT DENIES FURTHER NEEDS AT THIS TIME. BED LOW. CL INR EACH.
--- NOTE | 2016-05-12 08:00 | NUR ---
UP IN BED.BREAKFAST GIVEN.MEAL SET-UP PROVIDED.CL IN REACH.
[2016-05-12 09:21] VITALS: BP 133/61
--- NOTE | 2016-05-12 12:00 | NUR ---
EATING LUNCH.APPEARS PLEASANT.CL IN REACH.
[2016-05-12 12:44] LABS: CKMB 0.4 U/L (0.0-3.6); CREATINE KINASE 29 UL (21-215)
--- NOTE | 2016-05-12 16:00 | NUR ---
MORE TALKATIVE TODAY.CL IN REACH.
[2016-05-12 16:01] LABS: CKMB 0.7 U/L (0.0-3.6); CREATINE KINASE 31 UL (21-215); TROPONIN-I 0.031 ng/mL (0.000-0.060)
[2016-05-12 19:00] VITALS: BP 92/45
--- NOTE | 2016-05-12 20:23 | NUR ---
PT HS MEDS ADMINISTERED. PT IS RESTING IN BED AND DENIES FURTHER NEEDS AT THIS TIME. BED LOW. CL IN REACH.
[2016-05-12 21:48] LABS: CKMB 0.9 U/L (0.0-3.6); CREATINE KINASE 31 UL (21-215); TROPONIN-I 0.028 ng/mL (0.000-0.060)
--- NOTE | 2016-05-12 22:40 | NUR ---
PT RESTING, EYES CLOSED. BED LOW. CL IN REACH. WCTM.
--- NOTE | 2016-05-13 01:32 | NUR ---
PT ASSISTED TO BR. PT BACK IN BED AND DENIES FURTHER NEEDS. WCTM. BED LOW. CL IN REACH.
--- NOTE | 2016-05-13 08:00 | NUR ---
SHIFT ASSMT COMPLETED.FINISHED BREAKFAST.ASSISTED OOB TO WC WITH MOD ASSIST X1 AND TAKEN TO SHOWER.
[2016-05-13 10:27] VITALS: BP 132/57
--- NOTE | 2016-05-13 14:14 | NUR ---
Nutrition Follow Up: Pt reported that her appetite is good. Chart reviewed. Pt is eating 62% meal avg on a regular mechanical soft diet. +BM 05/12/16. No new wt to assess. Labs noted - BUN, Cr elevated. Meds noted including Lasix. Pt with good po intake at this time. Rec continue current diet. Will continue to provide selective menus and honor food preferences. RD following.
--- NOTE | 2016-05-13 16:00 | NUR ---
RESTING QUIETLY.CL IN REACH.
[2016-05-13 19:00] VITALS: BP 113/43
--- NOTE | 2016-05-13 19:42 | NUR ---
PT IN BED IWHT HOB UP FOR COMFORT, WATCHING TV, PT HAS NO COMPLAINTS AT THIS TIME, BED ALARM ON, BED IN LOWEST POITION AND CALL LIGHT WIHTIN REACH.
--- NOTE | 2016-05-13 23:15 | NUR ---
PT IN BED, EYES CLOSED, CHEST RISING AND FALLING, BED IN LOWEST POSITION AND CALL LIGHT WIHTIN REACH.
--- NOTE | 2016-05-14 01:55 | NUR ---
PT PRESSED CALLIGHT. WENT IN PT'S ROOM AND SHE STATED SHE DOESN'T KNOW WHERE SHE IS AT AND SHE HAS TO GO TO THE BATHROOM. TRIED TO REORIENT PT. PT ALERT & ORIENTED TO NAME AND TIME ONLY.
--- NOTE | 2016-05-14 04:04 | NUR ---
PT IN BED WITH HOB UP FOR COMFORT, EYES CLOSED CHEST RISING AND FALLING AND CALL LIGHT WITHIN REACH.
--- NOTE | 2016-05-14 04:24 | NUR ---
PT IN BED WITH EYES CLOSED AND CHEST RISING. NO SIGN/SYMPTOMS OF DISTRESS NOTED. CALL LIGHT IN REACH.
[2016-05-14 07:14] LABS: BASOPHILS 0.4 % (0.0-2.0); HEMATOCRIT 25.9 % (36.0-48.0); HEMOGLOBIN 8.1 g/dL (12-16); LYMPHOCYTES 17.9 % (15-50); MCH 27.3 pg (26.0-34.0); MCHC 31.3 g/dL (31.0-37.0); MCV 87.2 fL (80.0-100.0); MEAN PLATELET VOLUME 8.7 fL (7.4-10.4); MONOCYTES 6.7 % (2-11); PLATELET COUNT 266 10x3/uL (130-400); RBC 2.97 10x6/uL (4.00-5.40); RDW 17.6 % (11.5-14.5); WBC 5.2 10x3/uL (4.8-10.8)
[2016-05-14 07:40] LABS: CALCIUM 7.2 mg/dL (8.5-10.1); CREATININE - SERUM 1.5 mg/dL (0.6-1.3)
--- NOTE | 2016-05-14 08:00 | NUR ---
RESTING QUIETLY.DENIES NEEDS,STATED HAD AN EPISODE OF CONFUSION THROUGH NIGHT.STATES BETTER THIS AM.CL IN REACH.
--- NOTE | 2016-05-14 08:00 | NUR ---
SHIFT ASSMT COMPLETED.DENIES NEEDS.CL IN REACH.MEAL SET-UP PROVIDED.
[2016-05-14 09:55] VITALS: BP 126/46
--- NOTE | 2016-05-14 12:00 | NUR ---
SITTING UP IN BED EATING LUNCH.
--- NOTE | 2016-05-14 15:24 | NUR ---
CARE TEAM MEETING: PATIENT TENATIVE DISCHARGE DATE IS 05/26/16. DR. YOUNG IS PCP, HAS USED [facility] IN THE PAST. HOUSECALLS FOLLOW WITH PATIENT AT HOME. SHE HAS A WALKER, CANE, SHOWER CHAIR, BEDSIDE COMMODE. WILL CONTINUE TO FOLLOW WITH PATIENT UNTIL DISCHARGED
--- NOTE | 2016-05-14 16:00 | NUR ---
CL IN REACH.NO DISTRESS.
[2016-05-14 19:00] VITALS: BP 119/56
--- NOTE | 2016-05-14 20:00 | NUR ---
PT IS RESTING IN BED WITH EYES OPEN. ALERT TO SELF AND PLACE. CONFUSED TO TIME AND SITUATION, BUT REORIENTED EASILY. PT ASSISTED TO BATHROOM WITH MAX ASSIST. VOIDED WITHOUT DIFFICULTY. ASSISTED BACK TO BED. SR'S ARE UP X 3 IN BED. CALL LIGHT AND BEDSIDE TABLE ARE WITHIN EASY REACH.
--- NOTE | 2016-05-14 22:47 | NUR ---
PT IS RESTING QUIETLY IN BED WITH EYES CLOSED. RESPS ARE EVEN AND UNLABORED. NO ACUTE DISTRESS NOTED.
--- NOTE | 2016-05-15 01:20 | NUR ---
PT ASSISTED TO BATHROOM WITH MAX ASSIST FOR TRANSFERS. SBA FOR TOILETING.
--- NOTE | 2016-05-15 03:21 | NUR ---
RESTING IN BED WITH EYES CLOSED.
--- NOTE | 2016-05-15 04:10 | NUR ---
PATIENT AWAKE. SITTING UP IN BED. C/O PAIN AT RIGHT ILIAC CREST AREA. RED, BLISTERED RASH SUGGESTIVE OF HERPETIC LESION. DR. YOUNG WAS NOTIFIED BY DAY SHIFT CHARGE NURSE ON 05/14/16.
--- NOTE | 2016-05-15 04:55 | NUR ---
PT ASSISTED TO THE BATHROOM WITH MAX ASSIST FOR TRANSFERS. SHE VOICED COMPLAINT OF PAIN LEVEL OF 8 TO A SMALL 3CM ROUND AREA OF BLISTERS ON HER BUTTOCKS. 2X2 PLACED OVER BLISTERS, AND ISLAND DRESSING PLACED OVER THAT. PT MEDICATED WITH NORCO PER MAY.
--- NOTE | 2016-05-15 04:59 | NUR ---
LEV ROBERTS NOTIFIED OF POTENTIAL SHINGLES VIRUS WITH PT, AND POSSIBLE NEED TO ISOLATE PT.
[2016-05-15 06:37] LABS: BASOPHILS 0.2 % (0.0-2.0); EOSINOPHILS 1.1 % (0-7); HEMOGLOBIN 8.3 g/dL (12-16); IMMATURE GRANULOCYTES 0.2 % (0-5); LYMPHOCYTES 17.6 % (15-50); MCH 27.8 pg (26.0-34.0); MCHC 31.9 g/dL (31.0-37.0); MONOCYTES 6.8 % (2-11); NEUTROPHILS 74.1 % (40-80); PLATELET COUNT 281 10x3/uL (130-400); RBC 2.99 10x6/uL (4.00-5.40); RDW 18.1 % (11.5-14.5); WBC 5.5 10x3/uL (4.8-10.8)
[2016-05-15 06:52] LABS: CALCIUM 7.2 mg/dL (8.5-10.1); CARBON DIOXIDE 33.3 mmol/L (21.0-32.0); CREATININE - SERUM 1.5 mg/dL (0.6-1.3); POTASSIUM - SERUM 3.3 mmol/L (3.5-5.1)
--- NOTE | 2016-05-15 07:27 | NUR ---
RESTING IN BED WITHOUT ANY FALLS NOTED.
[2016-05-15 09:00] VITALS: BP 132/62
--- NOTE | 2016-05-15 14:26 | NUR ---
PT RESTING IN BED WITH EYES OPEN CALL LIGHT IN REACH NO PROBLEMS WILL MONITER
[2016-05-15 19:00] VITALS: BP 117/62
--- NOTE | 2016-05-15 20:25 | NUR ---
PT TOOK HS MEDS WITHOUT DIFFICULTY. PT ASSISTED TO BR, MOD ASSIST. PT BACK IN BED RESTING AND DENIES FURTHER NEEDS. WCTM. BED LOW. CL IN [facility].
--- NOTE | 2016-05-15 23:20 | NUR ---
PT RESTING, EYES CLOSED. BED LOW. CL IN REACH. WCTM.
--- NOTE | 2016-05-16 01:20 | NUR ---
PT LYING AWAKE IN BED, DENIES NEEDS. WCTM. BED LOW. C KIKA FLANNERY.
--- NOTE | 2016-05-16 03:49 | NUR ---
PT RESTING, EYES CLOSED. BED LOW. CL IN REACH. WCTM.
--- NOTE | 2016-05-16 06:50 | NUR ---
PT ASSISTED TO BR. PT TOOK AM MEDS WITHOUT DIFFICULTY. PT DENIES FURTHER NEEDS. BED LOW. CL IN REACH.
--- NOTE | 2016-05-16 07:00 | NUR ---
Pt. was received at the beginning of this shift in bed awake and oriented x 3. Vital signs: Temp. 97.7, pulse 54, resp. 16, b/p 124/49, 02Sat. 98%. Pt. will be assisted prn with adl's. No voiced complaints or signs of discomfort or distress. Call light is in reach.
[2016-05-16 09:00] VITALS: BP 124/49
--- NOTE | 2016-05-16 12:00 | NUR ---
Pt is having an uneventful day. She went to therapy and ambulated a good distance. Will continue to observe.
[2016-05-16 19:00] VITALS: BP 116/55
--- NOTE | 2016-05-16 19:30 | NUR ---
PT RESTING IN BED WATCHING TV. PT DENIES NEEDS AT THIS TIME. BED LOW. CLIN REACH.
--- NOTE | 2016-05-16 20:30 | NUR ---
PT TOOK HS MEDS WITHOUT DIFFICULTY. PT DENIES NEEDS. WCTM. BED LOW. CL IN REACH.
--- NOTE | 2016-05-16 23:28 | NUR ---
PT RESTING, EYES CLOSED. BED LOW. CL IN REACH. WCTM.
--- NOTE | 2016-05-17 01:30 | NUR ---
PT ASSISTED TO BR. PT BACK IN BED AND SONALI FURTHER NEEDS. WCTM. BED LOW. CL IN REACH.
--- NOTE | 2016-05-17 03:44 | NUR ---
PT RESTING, EYES CLOSED. BED LOW. CL IN REACH.
--- NOTE | 2016-05-17 05:57 | NUR ---
PT AM MEDS ADMINISTERED. PT DENIES NEEDS AT THIS TIME. BED LOW. CL IN REACH.
[2016-05-17 07:00] VITALS: BP 128/52
--- NOTE | 2016-05-17 07:00 | NUR ---
Pt. was received in bed awake and oriented to person at the beginning of this shift. She is confused. No verbal complaints or concerns at this time. Vital signs: Temp. 98.8, pulse 55, resp. 14, b/p 128/52, 02sat 98%. Will be monitoring her and assisting prn with adl's. No signs of discomfort or distress. Call light is in reach.
--- NOTE | 2016-05-17 17:19 | NUR ---
Pt. has had an uneventful day today. She is resting now in bed with eyes closed. No changes to report in health condition.
[2016-05-17 19:40] VITALS: BP 120/52
--- NOTE | 2016-05-17 20:11 | NUR ---
ASSISTED PT UP TO BATHROOM, MOD ASSIST, PT HAS TREMORS, UNSTEADY ON FEET. PT CONFUSED ON TIME, CLOCK DOESN'T WORK, NO BATTERIES AVAILABLE, TOLD PT WILL WORK ON FINDING ONE.
[2016-05-18 07:00] VITALS: BP 138/68
--- NOTE | 2016-05-18 07:00 | NUR ---
Pt. was received at the beginning of this shift in bed awake and oriented to self. She is confused and has a hard time understanding what is said to her or asked of her. Vital signs: Temp. 98.0, pulse 57, resp. 16, b/p 138/68, 02Sat. 98%. She was assisted to the bathroom and back to bed during this time. No verbal complaints of any pain or discomfort to report. Pt. is very unsteady on her feet and requires hands on support as to not fall or topple over. Will continue to monitor her and assist prn with adl's. Call light is within her reach.
--- NOTE | 2016-05-18 13:25 | NUR ---
Pt. continues to have an uneventful day today. No changes in health status to report. Pt. is doing alot of resting in bed today. Call light is in reach.
--- NOTE | 2016-05-18 18:55 | NUR ---
SITTING UP AT BEDSIDE IN W/C. DELIVERED HER MENU. TOLD HER I WILL ASSIST HER WIHT IT AFTER NURSING REPORT.
--- NOTE | 2016-05-18 18:55 | NUR ---
SITTING UP IN BED. DENIES NEEDS. DELIVERED HER MENU. TOLD HER I WILL ASSIST HER WITH IT AFTER I RECEIVE NURSING REPORT.
--- NOTE | 2016-05-18 20:40 | NUR ---
RESTING QUEITLY IN BED, EYES CLOSED.
[2016-05-18 21:15] VITALS: BP 160/70
--- NOTE | 2016-05-18 21:15 | NUR ---
ASSESSMENT AND HS MEDS COMPLETE. ASSISTED PATIENT UP TO BR TO URINATE AND THEN TO SHOWER. ASSISTED PATIENT TO SHOWER AND DRESSIN FRESH BRIEF AND SCRUBS AND RETURNED HER TO BED AFTER CHANGING ALL BED LINENS. PATIENT WANTS TO BE ARGUMENTATIVE REGARDING HER TRANSFER TECHNIQUE. I HAVE RE-INSTRUCTED HER MULTIPLE TIMES REGARDING PUTTING HER FEET UNDER HER AND USING HER LEGS PRIMARY MEANS OF STANDING. PATIENT INSISTS THERAPISTS HAD TAUGHT HER TO PULL HERSELF UP AND USE HER LEGS SECONDARY. REMINDED HER THAT IS SHE DOES NOT KEEP HER LEGS UNDER HER AND TO PUT WEIGHT ON HER FEET, SHE WILL SLIDE OFF HER BEDSIDE OR COMMODE RATHER THAN STAND.
--- NOTE | 2016-05-18 23:25 | NUR ---
ASSISTED PATIENT UP TO BR TO URINATE, AND THEN BACK TO BED.
--- NOTE | 2016-05-19 00:10 | NUR ---
RESTING IN BED ON LEFT SIDE. APPEARS COMFORTABLE.
--- NOTE | 2016-05-19 02:45 | NUR ---
IN BED, EYES CLOSED. WAS UP TO BR WITH ASSIST ABOUT AN HOUR AGO.
--- NOTE | 2016-05-19 04:05 | NUR ---
IN BED, EYES CLOSED. RESPIRING QUIETLY.
--- NOTE | 2016-05-19 07:56 | NUR ---
PT RESTING IN BED WITH EYES OPEN PT EATING BREAKFAST TOLERATING WELL WILL MONITER
[2016-05-19 08:55] VITALS: BP 160/68
--- NOTE | 2016-05-19 12:40 | NUR ---
PT UP IN WHEELCHAIR IN ROOM EATING LUNCH CALL LIGHT IN REACH WILL MONITER
--- NOTE | 2016-05-19 16:40 | NUR ---
PT IN BED WITH HOB UP FOR COMFORT, WATCHING TV, PT HAS NO COMPLAINTS AT THIS TIME, BED ALARM ON, BED IN LOWEST POSITION AND CALL LIGHT WITHIN REACH.
--- NOTE | 2016-05-19 19:20 | NUR ---
ASSISTED PATIENT UP TO BR TO URINATE, AND THEN BACK TO BED. DENIES FURTHER NEEDS.
[2016-05-19 19:37] VITALS: BP 105/63
--- NOTE | 2016-05-19 21:05 | NUR ---
ASSESSMENT AND HS MEDS COMPLETE. DENIES NEEDS. MILDLY SUSPICIOUS REGARDING HER ORDERED MEDICATIONS, ESPECIALLY HER VALTREX. CHANGED DRESSING TO RIGHT HIP LESION. CLEANED SITE, APPLIED ZOVIRAX CREAM AND COVERED WITH SMALL BORDERED MEPILEX DRESSING.
--- NOTE | 2016-05-19 22:05 | NUR ---
RESTING QUIETLY IN BED, EYES CLOSED.
--- NOTE | 2016-05-20 | NUR ---
IN BED, EYES CLOSED. APPEARS COMFORTABLE.
--- NOTE | 2016-05-20 02:40 | NUR ---
RESTING IN BED, EYES CLOSED. APPEARS COMFORTABLE.
--- NOTE | 2016-05-20 04:30 | NUR ---
RESTING IN BED, EYES CLOSED. RESPIRATIONS UNLABORED.
--- NOTE | 2016-05-20 05:40 | NUR ---
RESTING QUIETLY IN BED, EYES CLOSED.
[2016-05-20 09:03] VITALS: BP 132/62
--- NOTE | 2016-05-20 10:56 | NUR ---
Nutrition Follow Up: Pt reported that her appetite is very good. She said that she is eating most things on her tray. Pt is eating 71% meal avg on a regular mechanical soft diet. +BM 05/18/16. Labs noted - BUN, Cr elevated. Meds noted including Lasix, Zofran. Pt with good po intake at this time. Rec continue current diet. RD following.
--- NOTE | 2016-05-20 13:38 | NUR ---
SITTING UP IN CHAIR.DENIES NEEDS.
--- NOTE | 2016-05-20 14:49 | NUR ---
PT UP IN WHEELCHAIR EATING LUNCH TOLERATING WELL WILL MONITER
--- NOTE | 2016-05-20 19:10 | NUR ---
RESTING IN BED, EYES CLOSED. NO DISTRESS NOTED.
[2016-05-20 19:15] VITALS: BP 122/61
--- NOTE | 2016-05-20 20:35 | NUR ---
ASSESSMENT AND HS MEDS COMPLETE. CHANGED DRESSING TO RIGHT BUTTOCK HERPETIC LESION. APPLIED ZOVIRAX OINTMENT AND COVERED WITH BORDERED MEPILEX DRESSING.
--- NOTE | 2016-05-20 22:10 | NUR ---
RESTING QUEITLY IN BED, EYES CLOSED.
--- NOTE | 2016-05-21 00:25 | NUR ---
ASSISTED PATIENT UP TO BR COMMODE TO URINATE, AND THEN BACK TO BED. C/O LOW BACK PAIN AND PAIN IN RIGHT POSTERIOR HIP/BUTTOCK OF 07/16. GAVE STEPHANIE KINNEY X1 TAB PO.
--- NOTE | 2016-05-21 02:25 | NUR ---
RESTING IN BED, EYES CLOSED.
--- NOTE | 2016-05-21 04:30 | NUR ---
RESTING QUIETLY IN BED. RESPIRATIONS UNLABORED.
--- NOTE | 2016-05-21 06:00 | NUR ---
GAVE PATIENT SCHEDULED LASIX PO AND FRESH CUP OF ICE WATER. DENIES FURTHER NEEDS AT THIS TIME.
[2016-05-21 06:11] LABS: BASOPHILS 0.2 % (0.0-2.0); EOSINOPHILS 1.5 % (0-7); HEMOGLOBIN 8.2 g/dL (12-16); IMMATURE GRANULOCYTES 0.2 % (0-5); LYMPHOCYTES 25.2 % (15-50); MCH 28.2 pg (26.0-34.0); MCHC 31.5 g/dL (31.0-37.0); MCV 89.3 fL (80.0-100.0); MEAN PLATELET VOLUME 9.1 fL (7.4-10.4); MONOCYTES 8.4 % (2-11); NEUTROPHILS 64.5 % (40-80); RBC 2.91 10x6/uL (4.00-5.40); RDW 19.1 % (11.5-14.5); WBC 4.8 10x3/uL (4.8-10.8)
[2016-05-21 06:12] LABS: PLATELET COUNT 223 10x3/uL (130-400)
[2016-05-21 06:29] LABS: ANION GAP 9.8 mmol/L (8-16); CALCIUM 7.8 mg/dL (8.5-10.1); CARBON DIOXIDE 29.4 mmol/L (21.0-32.0); CREATININE - SERUM 1.5 mg/dL (0.6-1.3); POTASSIUM - SERUM 4.2 mmol/L (3.5-5.1)
[2016-05-21 07:55] VITALS: BP 122/64
--- NOTE | 2016-05-21 08:15 | NUR ---
PT UP IN WHEELCHAIR AT BEDSIDE EATING BREAKFAST CALL LIGHT IN REACH WILL MONITER
--- NOTE | 2016-05-21 12:31 | NUR ---
PT UP IN WHEELCHAIR EATING LUNCH TOLERATING WELL CHAIR ALARM COTTON GIN YARD SUPERVISOR LIGHT IN REACH
--- NOTE | 2016-05-21 15:36 | NUR ---
CARE TEAM MEETING: PATIENT PROGRESSING WELL AND TENATIVE DISCHARGE DATE IS 05/26/16. WILL SPEAK WITH FAMILY REGARDING DISCHARGE TO HOME IF 24HR CARE IS AVAILABLE. WILL CONTINUE TO FOLLOW WITH PATIENT
--- NOTE | 2016-05-21 16:00 | NUR ---
RESTING QUIETLY IN BED.CL IN REACH.ALARM ON
--- NOTE | 2016-05-21 18:32 | NUR ---
PT RESTING IN BED WITH EYES OPEN CALL LIGHT IN REACH NO PROBLEMS WILL MONITER
--- NOTE | 2016-05-21 19:20 | NUR ---
IN BED, AWAKE. DENIES NEEDS.
--- NOTE | 2016-05-21 20:35 | NUR ---
ASSESSMENT AND HS MEDS COMPLETE. DENIES NEEDS. WILL CHANGE RIGHT BUTTOCK DRESSING WHEN ZOVIRAX OINTMENT IS AVAILABLE FROM PHARMACY.
[2016-05-21 21:06] VITALS: BP 120/56
--- NOTE | 2016-05-21 23:35 | NUR ---
ASSISTED PATIENT UP TO BR COMMODE TO URINATE. PATIENT ALSO HAD A MEDIUM VOLUME SOFT BM, WHICH SHE REPORTED AFTER SHE HAD ALREADY FLUSHED THE COMMODE. TRANSFERRING BETTER TONIGHT.
--- NOTE | 2016-05-22 01:40 | NUR ---
RESTING IN BED, EYES CLOSED.
--- NOTE | 2016-05-22 04:15 | NUR ---
ASSISTED PATIENT UP TO BR TO URINATE, AND THEN BACK TO BED. DENIES NEEDS. PROVIDED HER WITH FRESH ICE WATER.
--- NOTE | 2016-05-22 06:15 | NUR ---
PATIENT REMAINS IN BED, AWAKE. DENIES CURRENT NEEDS.
--- NOTE | 2016-05-22 07:00 | NUR ---
Pt. was received in bed awake and oriented x 2 at the beginning of this shift. Vital signs: Temp. 98.1, pulse 61, resp 14, b/p 144/79, 02sat 97%. No verbal complaints of any pain or discomfort at this time. Call light is in reach. Will be monitoring pt. and assisting prn with adl's. No signs of distress.
[2016-05-22 08:19] VITALS: BP 144/79
--- NOTE | 2016-05-22 11:36 | NUR ---
Dr. Blackwood rounded this morning and new order was received for pt to have 1 unit of PRBC's to be infused after premedication given. Pt. was explained this to with her understanding. Will put and IV in pt. for blood to be delivered. Pt. did go to therapy this morning and participated well. She did get a shower too this morning with the help of OT.
--- NOTE | 2016-05-22 17:11 | NUR ---
Pt. is resting well in her room receiving 1 unit of PRBC per order. She has had family in and out this evening. No adverse reaction to report. Will continue to observe and assist. Call light is in reach.
[2016-05-22 19:05] VITALS: BP 149/66
--- NOTE | 2016-05-22 19:50 | NUR ---
PT. IN BED WITH HOB UP FOR COMFORT AND IS WATCHING TV. ASSESSMENT COMPLETED. PT. REQUESTING ASSISTANCE TO BR TO URINATE. LAMINATED PLASTICS ASSEMBLER AND GLUER ASSISTED TO BR VIA W/C AND BACK TO BED. PT. POSITIONED FOR COMFORT AND CALL LIGHT IS WITHIN REACH. NO VOICED NEEDS AT THIS TIME.
--- NOTE | 2016-05-22 23:26 | NUR ---
PT. IN BED WITH HOB UP FOR COMFORT LYING ON HER RIGHT SIDE WITH EYES CLOSED AND RESP. DEEP AND EVEN. CALL LIGHT WITHIN REACH. FREDDY ALARM ON FOR PT. SAFETY.
--- NOTE | 2016-05-23 01:22 | NUR ---
PT. IN BED WITH HOB UP FOR COMFORT AND LYING ON HER RIGHT SIDE. EYES ARE CLOSED AND RESP. DEEP AND EVEN. CALL LIGHT WITHIN REACH.
--- NOTE | 2016-05-23 04:04 | NUR ---
PT. IN BED WITH HOB UP FOR COMFORT AND LYING ON HER RIGHT SIDE WITH EYES CLOSED AND RESP. DEEP AND EVEN. CALL LIGHT WITHIN REACH.
[2016-05-23 06:15] LABS: BASOPHILS 0.5 % (0.0-2.0); EOSINOPHILS 1.3 % (0-7); HEMATOCRIT 29.3 % (36.0-48.0); HEMOGLOBIN 9.4 g/dL (12-16); IMMATURE GRANULOCYTES 0.3 % (0-5); LYMPHOCYTES 25.1 % (15-50); MCH 28.3 pg (26.0-34.0); MCHC 32.1 g/dL (31.0-37.0); MCV 88.3 fL (80.0-100.0); MEAN PLATELET VOLUME 8.9 fL (7.4-10.4); MONOCYTES 8.4 % (2-11); NEUTROPHILS 64.4 % (40-80); PLATELET COUNT 203 10x3/uL (130-400); RBC 3.32 10x6/uL (4.00-5.40); RDW 18.8 % (11.5-14.5); WBC 3.9 10x3/uL (4.8-10.8)
[2016-05-23 06:36] LABS: CARBON DIOXIDE 29.8 mmol/L (21.0-32.0); CREATININE - SERUM 1.5 mg/dL (0.6-1.3); POTASSIUM - SERUM 3.8 mmol/L (3.5-5.1)
--- NOTE | 2016-05-23 07:00 | NUR ---
PT. WAS RECEIVED IN BED AWAKE AND ORIENTED X 1 AT THE BEGINNING OF THIS SHIFT. IV TO RIGHT INNER FOREARM INTACT AND PATENT. CALL LIGHT IS IN HER REACH. VITAL SIGNS: TEMP. 98.0, PULSE 56, RESP. 18, B/P 134/59, 02SAT. 98%. PT IS FRIENDLY AND COOPERATIVE WITH STAFF. WILL BE MONITORING HER AND ASSISTING HER WITH HER ADL'S PRN. NO SIGNS OF ANY DISCOMFORT OR DISTRESS FOUND.
[2016-05-23 08:37] VITALS: BP 134/59
--- NOTE | 2016-05-23 15:59 | NUR ---
SPOKE WITH DAUGHTERS REGARDING DISCHARGE PLANS AND THEY ARE WANTING THEIR MOTHER TO GO TO [facility]. I WENT TO SPEAK WITH PATIENT AND SHE IS REFUSING TO GO UNTIL HER CHILDREN COME AND DISCUSS IT WITH HER. I CALLED DAUGHTER DARIANA TO TELL HER WHAT HER MOTHER REQUESTED . THEY ARE TO VISIT HER THIS WEEKEND.WILL CONTINUE TO FOLLOW WITH PATIENT
--- NOTE | 2016-05-23 19:38 | NUR ---
PT. IN BED WITH HOB UP FOR COMFORT WITH EYES CLOSED AND RESP. EVEN. PT. AWAKENS EASILY FOR ASSESSMENT. NO VOICED NEEDS. CALL LIGHT WITHIN REACH.
[2016-05-23 20:06] VITALS: BP 118/52
--- NOTE | 2016-05-23 23:17 | NUR ---
PT. IN BED LYING ON HER RIGHT SIDE WITH EYES CLOSED AND RESP. DEEP AND EVEN. CALL LIGHT REMAINS WITHIN REACH.
--- NOTE | 2016-05-23 23:21 | NUR ---
PT. IN BED WITH HOB UP FOR COMFORT WITH EYES CLOSED AND RESP. DEEP AND EVEN. CALL LIGHT WITHIN REACH. GRANDDAUGHTER ASLEEP IN BED NEXT TO PT. AND AWAKENS EASILY UPON ENTERING ROOM AND DENIES ANY NEEDS.
--- NOTE | 2016-05-24 02:03 | NUR ---
PT. IN BED WITH HOB UP FOR COMFORT AND LYING ON HER RIGHT SIDE. EYES CLOSED AND RESP. DEEP AND EVEN. CALL LIGHT WITHIN REACH.
[2016-05-24 07:00] VITALS: BP 103/55; BP 140/94
--- NOTE | 2016-05-24 07:35 | NUR ---
RECEIVED THIS AM RESTING QUIETLY IN BED.NO SIGNS OF ACUTE DISTRESS.CL IN EASY REACH,BED IN LOW POSITION.
[2016-05-24 20:00] VITALS: BP 123/62
--- NOTE | 2016-05-24 21:45 | NUR ---
PT TOOK HS MEDS WITHOUT DIFFICULTY. PT DENIES FURTHER NEEDS. WCTM. BED LOW. CL IN REACH.
--- NOTE | 2016-05-24 23:30 | NUR ---
PT RESTING, EYES CLOSED. BED LOW. CL IN REACH.
--- NOTE | 2016-05-25 02:10 | NUR ---
PT RESTING, EYES CLOSED. BED LOW. CL IN REACH.
--- NOTE | 2016-05-25 04:14 | NUR ---
PT RESTING, EYES CLOSED. RR ARE EVEN AND UNLABORED. WCTM. BED LOW. CL INR EACH.
[2016-05-25 07:00] VITALS: BP 144/66
--- NOTE | 2016-05-25 07:30 | NUR ---
RESTING QUIETLY IN BED. CALL LIGHT IN REACH
--- NOTE | 2016-05-25 08:05 | NUR ---
PATIENT SITTING UP IN BED FOR BREAKFAST. ALERT/ORIENT WITH SOME FORGETFULNESS NOTED. CALL LIGHT WITHIN REACH. VOICES NO NEEDS AT THIS TIME
--- NOTE | 2016-05-25 10:21 | NUR ---
PATIENT HELPED TO BATHROOM. STAND BY ASST.
--- NOTE | 2016-05-25 13:30 | NUR ---
PATIENT RESTING WELL IN BED. CALL LIGHT WITHIN REACH. BED ALARM ON.
--- NOTE | 2016-05-25 18:02 | NUR ---
PATIENT SITTING UP IN BED TO EAT SUPPER. CALL LIGHT WITHIN REACH. VOICES NO NEEDS
[2016-05-25 19:00] VITALS: BP 146/61
--- NOTE | 2016-05-25 20:20 | NUR ---
PT HS MEDS ADMINISTERED. PT DENIES NEEDS. WCTM. BED LOW. CL IN REACH.
--- NOTE | 2016-05-25 22:15 | NUR ---
PT ASSISTED TO BR. PT BACK IN BED RESTING AND DENIES FURTHER NEEDS. WCTM. BED LOW. CL IN REACH.
--- NOTE | 2016-05-26 00:15 | NUR ---
PT RESTING, EYES CLOSED. BED LOW. CL IN REACH.
--- NOTE | 2016-05-26 03:47 | NUR ---
PT RESTING, EYES CLOSED. BED LOW. CL IN REACH.
--- NOTE | 2016-05-26 05:52 | NUR ---
PT AM MEDS ADMINISTERED WITHOUT DIFFICULTY. PT DENIES NEEDS AT THIS TIME. BED LOW. CL IN REACH.
--- NOTE | 2016-05-26 07:30 | NUR ---
PT ASSISTED UP TO THE BATHROOM AT THIS TIME. MEDIUM FORMED BM NOTED. ALL TASKS DONE WITH SBA. PT IS ALERT AND ORIENTED X 3. DENIES ACUTE DISCOMFORT AT THIS TIME. SR'S ARE UP X 2 IN BED. CALL LIGHT AND BEDSIDE TABLE ARE WITHIN EASY REACH.
[2016-05-26 08:03] LABS: BASOPHILS 0.2 % (0.0-2.0); EOSINOPHILS 0.9 % (0-7); HEMATOCRIT 30.5 % (36.0-48.0); HEMOGLOBIN 9.7 g/dL (12-16); IMMATURE GRANULOCYTES 0.2 % (0-5); LYMPHOCYTES 23.4 % (15-50); MCH 28.6 pg (26.0-34.0); MCHC 31.8 g/dL (31.0-37.0); MEAN PLATELET VOLUME 9.1 fL (7.4-10.4); MONOCYTES 9.7 % (2-11); NEUTROPHILS 65.6 % (40-80); PLATELET COUNT 217 10x3/uL (130-400); RBC 3.39 10x6/uL (4.00-5.40); RDW 19.8 % (11.5-14.5); WBC 4.6 10x3/uL (4.8-10.8)
[2016-05-26 08:14] LABS: ANION GAP 8.5 mmol/L (8-16); CALCIUM 8.3 mg/dL (8.5-10.1); CARBON DIOXIDE 30.4 mmol/L (21.0-32.0); CREATININE - SERUM 1.4 mg/dL (0.6-1.3); POTASSIUM - SERUM 3.9 mmol/L (3.5-5.1)
--- NOTE | 2016-05-26 09:37 | NUR ---
REFERRAL HAS BEEN FAXED TO [facility] TO [facility] FOR POSSIBLE ADMISSION IN AM
[2016-05-26 10:55] VITALS: BP 127/52
--- NOTE | 2016-05-26 11:00 | NUR ---
PT IS PARTICIPATING IN THERAPY AT THIS TIME.
--- NOTE | 2016-05-26 11:11 | NUR ---
NUTRITION MONITORING & EVAL PT TOLERATING REG MECH SOFT DIET, 75 TO 100% INTAKE RECENT MEALS. WILL CONTINUE TO PROVIDE DIET, MONITOR PT PROGRESS. RD FOLLOWING
--- NOTE | 2016-05-26 12:48 | NUR ---
PT IS RESTING IN BED EATING LUNCH. NO NEEDS VOICED.
--- NOTE | 2016-05-26 15:00 | NUR ---
PT IS PARTICIPATING IN THERAPY AT THIS TIME. NO DISTRESS NOTED.
--- NOTE | 2016-05-26 17:42 | NUR ---
PT IS RESTING IN BED FEEDING SELF SUPPER WITHOUT DIFFICULTY. NO SWALLOWING PROBLEMS NOTED. NO NEEDS VOICED.
--- NOTE | 2016-05-26 18:13 | NUR ---
RESTING QUIETLY IN BED. REMAINS CONFUSED BUT COOPERATIVE.
--- NOTE | 2016-05-26 19:30 | NUR ---
IN BED, AWAKE. DENIES NEEDS.
[2016-05-26 21:05] VITALS: BP 118/56
--- NOTE | 2016-05-26 21:05 | NUR ---
ASSESSMENT AND HS MEDS COMPLETE. ASSISTED PATIENT UP TO BR TO URINATE, AND THEN BACK TO BED. DENIES FURTHER NEEDS.
--- NOTE | 2016-05-26 22:40 | NUR ---
RESTING QUIETLY IN BED, EYES CLOSED.
--- NOTE | 2016-05-27 | NUR ---
ASSISTED PATIENT UP TO BR TO URINATE, AND THEN BACK TO BED.
--- NOTE | 2016-05-27 01:50 | NUR ---
RESTING IN BED, EYES CLOSED. NO DISTRESS NOTED.
--- NOTE | 2016-05-27 04:20 | NUR ---
RESTING IN BED, EYES CLOSED.
--- NOTE | 2016-05-27 05:35 | NUR ---
ASSISTED PATIENT UP TO BR TO URINATE AND THEN BACK TO BED.
--- NOTE | 2016-05-27 07:00 | NUR ---
PT WAS RECEIVED AT THE BEGINNING OF THIS SHIFT IN BED AWAKE AND ORIENTED TO SELF. STABLE CONDITION OBSERVED. NO SIGNS OF ANY DISCOMFORT OR DISTRESS. PT. WILL BE DISCHARGING TODAY. VITAL SIGNS WNL.
--- NOTE | 2016-05-27 09:17 | NUR ---
PATIENT WILL DISCHARGE TO [facility] TODAY. NO HOME HEALTH OR DME NEEDED AT THIS TIME.APPOINTMENT WITH DR. YOUNG WILL BE MADE AT TIME OF DISCHARGE FROM SN[facility]. PATIENT CHOICE FORM FOR SNF AND [facility] FORM SIGNED , EXPLAINED AND FILED IN CHART.
[2016-05-27 09:31] VITALS: BP 167/68
[2016-05-27] MEDS ORDERED: K-DUR20 MEQ PO (11:30)
[2016-05-27] MEDS ORDERED: MIRALAX17 GM PO (11:30)
[2016-05-27] MEDS ORDERED: ACYCLOVIR15 GM TOPICAL (11:31)
--- NOTE | 2016-05-27 16:21 | NUR ---
PT. WAS DISCHARGED OUT OF REHAB TODAY AND WENT TO A NURSING FACILITY. SHE TOOK WITH HER HER PERSONAL BELONGINGS AND HER DISCHARGE PAPERWORK. HER DISCHARGE REPORT WAS PHONED INTO THE RECEIVING NURSE AT THE INTERMEDIATE. STABLE CONDITION UPON LEAVING. PT. WAS TAKEN OUT TO AWAITING VAN IN A WHEELCHAIR.
== END 2016-05-27 16:24 | DRG 64 ==
LOC: D.REHAB 17:34
PROVIDERS: ADMIT Emergency Medicine
DX: I63.512 Cerebral infarction due to unspecified occlusion or stenosis of left middle cerebral artery (principal); I50.23 Acute on chronic systolic (congestive) heart failure; I69.391 Dysphagia following cerebral infarction; R13.12 Dysphagia, oropharyngeal phase; I48.2 Chronic atrial fibrillation; I11.0 Hypertensive heart disease with heart failure; D64.9 Anemia, unspecified; R41.82 Altered mental status, unspecified; J43.9 Emphysema, unspecified; M19.90 Unspecified osteoarthritis, unspecified site; Z87.891 Personal history of nicotine dependence